=== PATIENT | female | born 1990 | race African-American/Black ===

== ENCOUNTER 2019-07-11 09:50 | Inpatient (IN) ==
[2019-07-11 11:24] LABS: BILIRUBIN URINE NEGATIVE (NEGATIVE); BLOOD URINE 4+ (NEGATIVE); CLARITY VERY CLOUDY (CLEAR); COLOR RED; GLUCOSE URINE NEGATIVE (NEGATIVE); KETONE URINE TRACE mg/dL (NEGATIVE); LEUKOCYTES URINE TRACE (NEGATIVE); NITRITE URINE NEGATIVE (NEGATIVE); PROTEIN URINE 2+(100 mg/dL) mg/dL (NEGATIVE); SP GRAVITY URINE 1.015; UROBILINOGEN URINE NORMAL
[2019-07-11 11:25] LABS: URINE BACTERIA 1+ /HFP; URINE RBC TNTC /HPF (<10); URINE SOURCE CLEAN CATCH
[2019-07-11 11:31] LABS: AGAP 11; ALBUMIN 4.7 g/dL (3.5-5.0); ALKALINE PHOSPHATASE 54 U/L (32-104); BUN 11 mg/dL (8-22); CALCIUM 9.5 mg/dL (8.8-10.2); CHLORIDE 107 mmol/L (98-107); COSMO 281; CREATININE 0.6 mg/dL (0.5-0.9); ESTIMATED GFR > 60; GLUCOSE 101 mg/dL (70-104); GOT 17 U/L (10-30); GPT 11 U/L (10-36); POTASSIUM 3.4 mmol/L (3.5-5.1); SODIUM 141 mmol/L (136-145); TCO2 23 mmol/L (25-35); TOTAL PROTEIN 8.1 g/dL (6.3-8.3)
[2019-07-11 11:44] LABS: INR 0.99; PROTIME 13.6 Seconds (11.0-16.0)
[2019-07-11 11:45] LABS: PTT 27.5 Seconds (22.3-41.8)
[2019-07-11 12:03] LABS: BASO# 0.06 X1000 (0.0-0.2); BASO% 1.4 % (0.0-0.8); EOS# 0.02 X1000 (0.0-0.7); EOS% 0.5 % (0.0-10.0); HEMATOCRIT 24.2 % (37.0-47.0); HEMOGLOBIN 6.6 g/dL (12.0-16.0); LYMPH# 2.08 X1000 (1.2-3.4); LYMPH% 47.5 % (20.5-51.1); MCH 19.4 PG (27-31); MCHC 27.3 g/dL (33-37); MONO# 0.36 X1000 (0.11-0.59); MONO% 8.2 % (1.7-9.3); NEUT# 1.86 X1000 (1.4-6.5); NEUT% 42.4 % (42.2-75.2); PLT 105 X1000 (130-400); RBC 3.41 XMIL (4.2-5.4); RDW 31.5 % (11.5-14.5); WBC 4.38 X1000 (4.8-10.8)
--- NOTE | 2019-07-11 12:08 | Diag Imaging Result Doc PS360 ---
US PELVIC NON-OB COMPLETE - 07/11/2019 INDICATION: vaginal bleeding TECHNIQUE: Transabdominal and endovaginal COMPARISON: None FINDINGS: The uterine endometrium is somewhat enlarged and very heterogeneous in echotexture. The endometrium measures about 1.5 cm maximally. The uterus measures 7.2 x 4.4 x 3.9 cm. There are several simple cysts of each ovary. These measure up to 1.8 cm on the right and 1.3 cm m on the left. There is some free fluid at the left side of the pelvis. There was significant vaginal bleeding during and after the exam. IMPRESSION: 1. Enlarged heterogeneous abnormal endometrium. This may represent retained products of conception from a missed , endometrial polyp, endometrial blood clot or endometritis. 2. Small bilateral ovarian cysts. 3. Trace pelvic free fluid. Electronically signed by Nicholas Galvan 07/11/2019 12:06 PM
[2019-07-11] MEDS ORDERED: NS 1,000 ML IV ONE (12:12)
[2019-07-11] MEDS ORDERED: PREMARIN IV ONE ×2 (12:13→12:15)
[2019-07-11] MEDS ORDERED: NS 500 ML IV ONE ×2 (12:17→14:05)
[2019-07-11 13:35] LABS: ANISOCYTOSIS 2+; EOS 1 % (1-10); LYMPHS 43 % (21-51); MICROCYTOSIS 1+; MONO 5 % (1-9); SEGS 48 % (42-75)
--- NOTE | 2019-07-11 13:49 | PROVIDER DOCUMENTATION ---
This chart was entered by Brandy Tay Scribe, acting as scribe for Isabel Collins MD. HPI-Female /OB/Breast - General Chief Complaint: Female Stated Complaint: FEMALE Time Seen by Provider: 07/11/19 10:13 Source: reports: patient Allergies/Adverse Reactions: Patient Allergies Allergy/AdvReac Type Severity Reaction Status Date / Time ibuprofen AdvReac HIVES Verified 07/11/19 09:57 Home Medications: Home Medication List Medication Instructions Recorded Confirmed Last Taken Type NK [No Home Medications] 07/11/19 07/11/19 Unknown History - History of Present Illness-Female /OB Nature of Presenting Problem: Patient is a 29 year old female who presents with vaginal bleeding. States she started to pass clots this morning. Reports LMP was 2 weeks ago. Denies taking control. History of anemia. Does patient report she is ?: No Location of complaint: reports: vaginal Quality of Pain: reports: none Severity in ED: reports: mild Onset/Duration: reports: this morning Timing: reports: still present Vaginal Symptoms: reports: abnormal bleeding Vaginal Bleeding Amount: Medium/Moderate Urinary Symptoms: reports: no symptoms Associated Symptoms: reports: denies symptoms Similar Symptoms Previously?: No Recently seen or treated by another doctor?: No - LMP/ History LMP: 06/27/19 : 0 Para: 0 : 0 Review of Systems - Adult - REVIEW OF SYSTEMS - ADULT Constitutional: reports: no symptoms reported Eyes: reports: no symptoms reported Ears, Nose, Mouth & Throat: reports: no symptoms reported Cardiovascular: reports: no symptoms reported Respiratory: reports: no symptoms reported Gastrointestinal: reports: no symptoms reported Genitourinary: reports: see HPI, other (vaginal bleeding). denies: dysuria, hematuria Musculoskeletal: reports: no symptoms reported Integumentary: reports: no symptoms reported Neurological: reports: no symptoms reported Psychiatric: reports: no symptoms reported Endocrine: reports: no symptoms reported Hematologic/Lymphatic: reports: no symptoms reported Allergic/Immunologic: reports: no symptoms reported All Other Systems: Reviewed and Negative Past History - Adult - PAST MEDICAL HISTORY-ADULT Review of Records: reports: Old Records Reviewed, Nursing Assessment Review, Medications Reviewed, Social history reviewed & non-contributory. Major Childhood Illnesses: reports: denies history Cardiovascular: reports: denies history Respiratory: reports: denies history Gastrointestinal: reports: denies history Obstetrical/Gynecological: reports: denies history Genitourinary: reports: denies history Musculoskeletal: reports: denies history Neurological: reports: denies history Endocrine/Immune: reports: denies history Other Conditions: reports: denies history - PRIOR SURGERIES/PROCEDURES Surgical/Procedure History: reports: reviewed, not pertinent - IMMUNIZATION STATUS Childhood Immunizations: See Nurse Assessment Flu Vaccine: See Nurse Assessment - FAMILY HISTORY Family History: reviewed, not pertinent - SOCIAL HISTORY Smoking: denies Substance Use: denies Living Situation: family Physical Exam-General - PHYSICAL EXAM-ADULT Initial Vital Signs Reviewed: Yes - CONSTITUTIONAL General Appearance: alert, no apparent distress. negative: lethargic - HEAD, EARS, NOSE, MOUTH & THROAT HENMT: normocephalic/atraumatic, moist mucous membranes. negative: angioedema - RESPIRATORY Respiratory: chest non-tender, lungs clear, normal breath sounds. negative: c rackles, rhonchi - CARDIOVASCULAR Cardiovascular: normal peripheral pulses, regular rate, rhythm. negative: tachycardia - GASTROINTESTINAL (ABDOMEN) Abdominal Exam: normal bowel sounds, non tender, soft. negative: guarding - GENITOURINARY Female Genitalia/Pelvic Exam: deferred - MUSCULOSKELETAL Extremity: normal inspection. negative: deformity, swelling - SKIN Integumentary: normal color, normal turgor, warm/dry. negative: diaphoresis, pallor - NEUROLOGIC Neurologic: grossly normal. negative: aphasia, facial droop - PSYCHIATRIC Psych/Mental Status: normal mood/affect, oriented x 3. negative: anxious Progress - PLAN OF CARE/RESULTS Progress/Plan/Lab Results: Bedside Urine ED: Urine Bedside Start: 07/11/19 09:58 Freq: ORDERED Status: Complete Protocol: Activity Type Activity Date Activity User E-Sign Co-Sign Detail Recorded Client Recorded Date Recorded By Document 07/11/19 10:42 [id number] 07/11/19 10:43 [id number] 07/11/19 10:42 Point of Care [Bedside Point of Care] -Lot # [id number] - Results Negative -Control Line Visible? Yes Result Diagrams: 07/11/19 10:35 07/11/19 10:35 - REASSESSMENT Reassessment #1 Time Reassessed: 13:11 Status: other (Dr. Collins informed the patient that the national opelint analyst OBGYN want the patient to have a pelvic exam. The patient requested a female provider to do the exam.) - ULTRASOUND (By Radiology) 1 US Study: Pelvic Impression: See EMR Report ( US PELVIC NON-OB COMPLETE - 07/11/2019 INDICATION: vaginal bleeding TECHNIQUE: Transabdominal and endovaginal COMPARISON: None FINDINGS: The uterine endometrium is somewhat enlarged and very heterogeneous in echotexture. The endometrium measures about 1.5 cm maximally. The uterus measures 7.2 x 4.4 x 3.9 cm. There are several simple cysts of each ovary. These measure up to 1.8 cm on the right and 1.3 cm m on the left. There is some free fluid at the left side of the pelvis. There was significant vaginal bleeding during and after the exam. IMPRESSION: 1. Enlarged heterogeneous abnormal endometrium. This may represent retained products of conception from a missed , endometrial polyp, endometrial blood clot or endometritis. 2. Small bilateral ovarian cysts. 3. Trace pelvic free fluid. Electronically signed by Nicholas Galvan 07/11/2019 12:06 PM 07/11/19 1206 Interpreting Physician: Nicholas Galvan MD Dictated Date/Time: 07/11/19 1202 cc: Isabel Collins MD; Charles Perdomo MD) - CONSULTS/PCP/HOSPITALIST Notification #1 *Consult/PCP/Hospitalist*: Dr. Flores Time Discussed: 13:04 Reason/Comments: Dr. Collins consulted with Dr. Flores about patient. Consult Disposition: Admit #2 Consult: Dr. Cleveland Time Discussed: 13:07 Reason/Comments: Dr. Collins consulted with Dr. Cleveland about patient. #3 Consult: Dr. Cleveland Time Discussed: 13:25 Reason/Comments: David consulted with Dr. Cleveland about patient. Departure - Departure Date of Disposition Decision: 07/11/19 Time of Disposition Decision: 13:47 DIAGNOSIS: Vaginal bleeding Anemia Qualifiers: Anemia type: iron deficiency Iron deficiency anemia type: chronic blood loss Qualified Code(s): D50.0 - Iron deficiency anemia secondary to blood loss (chronic) Disposition: ADMITTED INPATIENT 09 Certified Medical Emergency: Emergent Condition: Serious - Critical Care Note This patient required my direct & personal management of CC.: No Attestation - Physician/ MIRIAM Attestation Patient care was provided by Advanced Practice Provider:: No The physician spent face to face time with patient:: Yes Advanced Practice Provider documentation review:: Supervising physician onsite and consulted in the evaluation and care of this patient. The physician did have a face to face encounter with the patient. This chart was documented by the indicated scribe, (Brandy Tay Scribe) and accurately reflects the services I performed and decisions made by me, Isabel Collins MD, as attested by the provider's signature.
[2019-07-11] MEDS ORDERED: NS 500 ML ONE (14:04)
[2019-07-11 14:39] LABS: IRON SATURATION 9 %; TIBC 344 ug/dL; TOTAL IRON 32 ug/dL (49-151); UNBOUND IRON 312 ug/dL (112-346)
[2019-07-11] MEDS ORDERED: ZOFRAN IV PRN (17:12)
[2019-07-11] MEDS ORDERED: TYLENOL PO PRN (17:12)
--- NOTE | 2019-07-11 18:04 | HISTORY AND PHYSICAL ---
PRIMARY CARE PHYSICIAN: Charles Perdomo MD CHIEF COMPLAINT: Vaginal bleeding, passing large clots this morning. Last menstrual period 2 weeks ago. HISTORY OF PRESENTING ILLNESS: This is a 29-year-old female, who presents to [facility] ER with complaints of vaginal bleeding. States she began passing large clots of material vaginally this morning. Has a history of iron- deficiency anemia. States her last menstrual period was 2 weeks ago and that she had finished her cycle approximately a week ago so the bleeding this morning was brand new for her with the clots. She states that she is not sexually active. Is a 0, para 0, abortus 0. Her workup showed a hemoglobin of 6.6 with a hematocrit of 24.2. Her urine test was negative. We did do a pelvic ultrasound that showed an impression of an enlarged heterogeneous abnormal endometrium that may represent retained product of conception from a missed , endometrial polyp, endometrial blood clot, or endometritis, small bilateral ovarian cyst and trace pelvic free fluid so she will be admitted to the medical unit at [facility], [place] for QUOTATION CHECKER consultation and further evaluation and treatment. PAST MEDICAL HISTORY: Iron deficiency anemia. PAST SURGICAL HISTORY: None. FAMILY HISTORY: Reviewed and noncontributory. SOCIAL HISTORY: She denies any tobacco, alcohol, or illicit drug use. ALLERGIES: Ibuprofen. HOME MEDICATIONS: She does not list any medications on a routine basis, but she does state that she takes an iron tablet every day for her iron deficiency anemia, so we will verify that with an order for Nursing to update and confirm home medications. DIAGNOSTIC STUDIES: Laboratory data showed a white blood cell count of 4.38, hemoglobin 6.6, hematocrit 24.2, platelets 105. PT 13.6, INR 0.99. Sodium 141, potassium 3.4, chloride 107, CO2 of 23, BUN of 11, creatinine 0.6 glucose 101. TSH of 2.65. Urinalysis showed 4+ blood, negative nitrites, trace white blood cells, 1+ bacteria. Urine test was negative. Pelvic ultrasound showed an impression of an enlarged heterogeneous abnormal endometrium that may represent retained products of conception from a missed , endometrial polyp, endometrial blood clot, or endometritis. Small bilateral ovarian cyst and trace pelvic free fluid. A serum test is pending at this time. REVIEW OF SYSTEMS: She denied any fever, chills, blurred vision. She has had some mild dizziness, weakness, fatigue. Denied any chest pain, coughing, shortness of breath. Denied any abdominal pain, constipation, diarrhea, or burning or hurting with urination. She has noted positive for bright red vaginal bleeding with large clots that began this morning. PHYSICAL EXAMINATION: VITAL SIGNS: On arrival she had a temperature of 98 degrees, pulse 104, respirations 18, blood pressure 124/76, saturating 100% on room air. GENERAL: This is a 29-year-old female, who is lying in the bed and answers questions appropriately. HEMNT: Normocephalic, atraumatic. Normal ENT inspection. Oropharynx and nares are clear. EYES: Pupils are equal, round, and reactive to light and accommodation. Extraocular movements are intact. NECK: Normal inspection. Normal range of motion. LUNGS: Clear to auscultation bilaterally with equal lung expansion and chest wall movement. HEART: With regular rate and rhythm. No murmurs, rubs, or gallops. ABDOMEN: Soft, nontender, nondistended. Bowel sounds are present x4 quadrants. MUSCULOSKELETAL: She had 5/5 strength x4 extremities. NEUROLOGICAL: Cranial nerves 2 through 12 appear grossly intact. ASSESSMENT: 1. Menorrhagia. 2. Symptomatic iron deficiency anemia. OUR PLAN: She will be admitted to the medical unit at [facility] [place]. We will transfuse 2 units of packed red blood cells today. We are checking a serum test. We will consult QUOTATION CHECKER. I am going to do iron studies on this patient, and she received conjugated estrogen 25 mg IV x1 and 1.5 L of normal saline boluses. We will continue her at 75 mL an hour. We will recheck a CBC, BMP in the a.m. Further orders after seen by attending and medical consultant. Dictated by SRUTHI Cristobal for Asad Flores MD cc: SRUTHI Cristobal MD Wayne E. Thomas, MD Pt seen and examined/pt is having active vaginal bleeding, has hx menorrhagia, abdominal exam is benign; pt will need evaluation by sifting operator for abnormal pelvic us findings; and possible d and c/hysteroscopy; we will transfuse to get 2 units prbc and more if necessary based on results otherwise agree with findings/plan as described above. MTDD
[2019-07-11] MEDS ORDERED: ZOFRAN ONE (18:27)
[2019-07-11] MEDS ORDERED: ROBINUL ONE (18:27)
[2019-07-11] MEDS ORDERED: XYLOCAINE-MPF 2% ONE (18:27)
[2019-07-11] MEDS ORDERED: DECADRON ONE (18:27)
[2019-07-11] MEDS ORDERED: DIPRIVAN 1% ONE (18:28)
[2019-07-11] MEDS ORDERED: QUELICIN (DOSE) ONE (18:32)
[2019-07-11] MEDS ORDERED: CYTOTEC ONE (19:10)
[2019-07-11] MEDS ORDERED: PITOCIN ONE (19:11)
[2019-07-11] MEDS ORDERED: FENTANYL ONE (19:15)
[2019-07-11] MEDS ORDERED: SILVER NITRATE APPLICATOR ONE (19:24)
[2019-07-11] MEDS ORDERED: OFIRMEV 1000 MG/ISOTONIC SOLN 1,000 MG/100 ML BOTTLE ONE (19:49)
[2019-07-11] MEDS: OFIRMEV 1000 MG/ISOTONIC SOLN 1,000 MG/100 ML BOTTLE IV SCH (19:55)
[2019-07-11] MEDS: DILAUDID ONE ×4 (20:00→20:28)
[2019-07-11 20:33] LABS: HEMATOCRIT 21.9 % (37.0-47.0); HEMOGLOBIN 6.4 g/dL (12.0-16.0)
--- NOTE | 2019-07-11 20:38 | CONSULTATION ---
DATE OF CONSULTATION: 07/11/2019 CHIEF COMPLAINT: Abnormal uterine bleeding/heavy menstrual bleeding. HISTORY OF PRESENT ILLNESS: Gynecologic team consulted for a 29-year-old G0 who presented to [facility] for symptomatic anemia and heavy menstrual bleeding. The patient reports last menstrual period occurred approximately 2 weeks ago, and describes a history of regular monthly menstrual cycles with heavy menstrual bleeding since menarche. Typically, the patient's cycle lasts about 5 days. Describes heavy menstrual bleeding for all 5 days with use of extra heavy overflow pads 5 times a day. The patient's history is also significant for IV iron transfusions at ages 18 and 23. The patient is currently status post IV estrogen x1 dose, and 2 units of packed red blood stat cells, but still admits to symptomatic anemia, shortness of breath, and dizziness. Reports the bleeding started today with passage of small clots this morning, and progressively got worse with passage of large blood clots. PAST MEDICAL HISTORY: chronic heavy menstrual bleeding. SURGICAL HISTORY: Tonsillectomy. [place] HISTORY: Menarche at age 15. Denies any STD exposure. Heavy menstrual bleeding. OBSTETRICAL HISTORY: G0. MEDICATIONS: Ferrous sulfate. ALLERGIES: Ibuprofen. SOCIAL HISTORY: Denies tobacco, alcohol, or drug use. FAMILY HISTORY: Father with hypertension. Mother with a history of heavy menstrual bleeding, requiring hysterectomy. PHYSICAL EXAMINATION: Vital Signs: Temperature is 98.1 degrees, pulse rate 101, respiration rate 18, blood pressure 122/81, and O2 saturation is 100% on room air. Weight 113 pounds, height 5 feet 1 inch tall, body mass index 21.4 kg/m2. General: No acute distress. Alert, awake, oriented x3. Cardiovascular: Regular rate and rhythm. Positive S1, S2. Respiratory: Clear to auscultation bilaterally. Abdomen: Soft, nontender to palpation. Pelvic: Sterile speculum exam: Passage of large blood clots. Approximately 300 mL of blood clot removed from vaginal vault on exam. With Valsalva, significant bleeding noted from cervical os. Bimanual exam: Mobile 8 cm size uterus. Nontender to palpation. LABORATORY DATA: WBCs 4.38, hemoglobin 6.6, hematocrit 24.2, platelets 105,000. PT 13.6, INR 0.99, PTT 27.5. Creatinine is 0.6. TSH 2.65. Urine test is negative. IMAGING: Ultrasound: Uterus measures 7.2 x 4.4 x 3.9 cm. Uterine endometrium very heterogeneous in echotexture, measuring 1.5 cm in thickness. Bilateral ovaries with simple cysts. Trace pelvic free fluid. ASSESSMENT: Ms. Sosa is a 29-year-old, 0, who presents with dysfunctional uterine bleeding complicated by symptomatic anemia. PLAN: 1. Recommend surgical procedure via dilation and curettage to help reduce vaginal bleeding and thin endometrial lining. 2. The patient counseled on the risks, benefits, and alternatives to procedure, risks not limited to infection, bleeding, injury to surrounding organs, including uterine perforation, injury to bowel, bladder, or ureters, and cervix. 3. We will recheck CBC post procedure to assess for need of additional packed red blood cells. [facility] HOSPITALFranklin
[2019-07-11] MEDS: NS 1,000 ML IV SCH (21:02)
--- NOTE | 2019-07-11 21:12 | OPERATIVE NOTE ---
PROCEDURE DATE: 07/11/2019 PREOPERATIVE DIAGNOSIS: Dysfunctional uterine bleeding. POSTOPERATIVE DIAGNOSIS: Dysfunctional uterine bleeding with possible uterine polyps. PROCEDURE PERFORMED: Dilation and curettage. SURGEON: Char Cleveland DO CRM DYNAMICS DEVELOPER: None. ANESTHESIA: General endotracheal anesthesia. FINDINGS: A 7 cm sized uterus with endometrial polyps. COMPLICATIONS: None. ESTIMATED BLOOD LOSS: 200 mL. SPECIMENS REMOVED: Endometrial curettings. SURGICAL RISKS: The patient was informed of the risks and benefits of the procedure. Risks included, but were not limited to, bleeding, infection, injury to surrounding organs, and uterine perforation. The patient expressed understanding of the risk involved. All questions were answered and the patient consented to the procedure. DESCRIPTION OF THE PROCEDURE: The patient was taken to the operating room where a time-out was performed to confirm correct patient and correct procedure. The patient was given IV sedation. Anesthesia was established. The patient was then positioned on the operating table in a dorsal lithotomy position with the legs supported using candy-cane stirrups. The patient was then prepped and draped in the usual sterile fashion. A bimanual exam was performed and uterus was found to be approximately 7 cm in size, mid position and slightly dilated at the cervix. A weighted speculum was inserted into the vagina and the cervix was visualized and grasped using single-tooth tenaculum and gentle traction was applied to the single-tooth tenaculum. The uterus was sounded to approximately 7 cm. A curette was used and passed successfully through the cervix to the uterus without cervical dilation. The curette was advanced to the fundus and the uterine cavity was curetted in a systematic manner with care taken to cover all surfaces. Endometrial curettings were placed on the Telfa and sent to Pathology. The curette was then withdrawn and the single-tooth tenaculum was removed from the anterior lip of the cervix. Adequate hemostasis was noted, but to increase hemostasis 800 mcg of Cytotec was placed per rectum to support good hemostasis. The weighted speculum was removed from the vagina. At completion of the procedure, all needle, sponge, and instrument counts were noted to be correct x2. The patient tolerated the procedure well and was transferred to the recovery room in stable condition.
[2019-07-11 22:43] LABS: FERRITIN 2 ng/mL (13-150)
[2019-07-12] MEDS: OFIRMEV 1000 MG/ISOTONIC SOLN 1,000 MG/100 ML BOTTLE IV SCH ×2 (03:25→09:34)
--- NOTE | 2019-07-12 07:54 | EKG Report ---
Test Performed on : 07/11/2019 12:13:22 PM Test Reason : ER Blood Pressure : / mmHG Vent. Rate : 083 BPM Atrial Rate : 083 BPM P-R Int : 178 ms QRS Dur : 086 ms QT Int : 362 ms P-R-T Axes : 052 017 011 degrees QTc Int : 425 ms Normal sinus rhythm. Minimal voltage criteria for LVH, may be normal variant Cannot rule out Anterior infarct , age undetermined Abnormal ECG No previous ECGs available Unconfirmed Result
--- NOTE | 2019-07-12 09:20 | PROVIDER PROGRESS NOTE ---
- Subjective Pt seen and examined. Currently w/o complaints. Reports bleeding has reduced significantly s/p D&C and dizziness resolved s/p 4 units of pRBCs. Pt ambulating and urinating without difficulty. Denies abdominal pain/fever/chills/n/v. Physical Exam Objective Vital Signs - 8 hr 07/12/19 01:22 07/12/19 03:23 07/12/19 03:31 Temperature 97.7 F 98.1 F 98.1 F Pulse Rate 79 69 67 Respiratory Rate 13 12 12 Blood Pressure 108/68 108/75 118/63 O2 Sat by Pulse Oximetry 100 100 100 07/12/19 03:57 07/12/19 04:12 07/12/19 05:47 Temperature 98.1 F 98.0 F 97.4 F L Pulse Rate 58 L 65 57 L Respiratory Rate 11 L 13 11 L Blood Pressure 118/69 102/68 103/72 O2 Sat by Pulse Oximetry 100 100 100 07/12/19 08:00 Temperature 97.9 F Pulse Rate 73 Respiratory Rate 14 Blood Pressure 122/66 O2 Sat by Pulse Oximetry 100 - Constitutional General Appearance: appears well, alert, no apparent distress - RESPIRATORY Respiratory: lungs clear, normal breath sounds - CARDIOVASCULAR Cardiovascular: regular rate, rhythm - GASTROINTESTINAL (ABDOMEN) Abdominal Exam: non tender, soft - GENITOURINARY Female Genitalia/Pelvic Exam: external exam normal, other (minimal blood/spotting noted on peripad) - MUSCULOSKELETAL Extremity: no calf tenderness - PSYCHIATRIC Psych/Mental Status: normal mood/affect, oriented x 3 Active Medications Generic Name Dose Route Start Last Admin Trade Name Freq PRN Reason Stop Dose Admin Sodium Chloride 1,000 mls @ 75 mls/hr 07/11/19 17:12 07/11/19 21:02 Ns IV 75 mls/hr .[id number] ALEXANDER Administration Acetaminophen 1,000 mg in 100 mls @ 400 mls/hr 07/11/19 19:45 07/12/19 03:25 Ofirmev 1000 Mg/Isotonic Soln IV 07/12/19 20:00 400 mls/hr Q6H ALEXANDER Administration Ondansetron HCl 4 mg 07/11/19 17:12 Zofran IV Q4H PRN PRN Nausea And Vomiting Bedside Urine ED: Urine Bedside Start: 07/11/19 09:58 Freq: ORDERED Status: Complete Protocol: Activity Type Activity Date Activity User E-Sign Co-Sign Detail Recorded Client Recorded Date Recorded By Document 07/11/19 10:42 [id number] 07/11/19 10:43 [id number] Edit Status 07/11/19 17:13 [id number] Active=>Complete [id number] 07/11/19 17:13 [id number] 07/11/19 10:42 Point of Care [Bedside Point of Care] -Lot # [id number] - Results Negative -Control Line Visible? Yes Laboratory Results - last 24 hr 07/11/19 07/11/19 07/11/19 10:35 10:35 10:35 WBC 4.38 L RBC 3.41 L Hgb 6.6 L Hct 24.2 L MCV 71.0 L MCH 19.4 L MCHC 27.3 L RDW Std Deviation 31.5 H Plt Count 105 L MPV Not Reportable Immature Gran % (Auto) 0.0 Neut % (Auto) 42.4 Lymph % (Auto) 47.5 Chaves % (Auto) 8.2 Eos % (Auto) 0.5 Baso % (Auto) 1.4 H Immature Gran # (Auto) 0.00 Neut # (Auto) 1.86 Lymph # (Auto) 2.08 Chaves # (Auto) 0.36 Eos # (Auto) 0.02 Baso # (Auto) 0.06 Segmented Neutrophils 48 Lymphocytes 43 Monocytes 5 Eosinophils 1 Anisocytosis 2+ Microcytosis 1+ PT 13.6 INR 0.99 PTT (Actin FS) 27.5 Sodium 141 Potassium 3.4 L Chloride 107 Carbon Dioxide 23 L Anion Gap 11 BUN 11 Creatinine 0.6 Estimated GFR/1.73 m2 > 60 BUN/Creatinine Ratio 18 Glucose 101 Calculated Osmolality 281 Calcium 9.5 Iron TIBC % Saturation Unsat Iron Binding Ferritin Total Bilirubin 0.40 AST 17 ALT 11 Alkaline Phosphatase 54 Total Protein 8.1 Albumin 4.7 Globulin 3.0 Albumin/Globulin Ratio 1.0 Vitamin B12 Folate TSH Urine Source Urine Color Urine Clarity Urine pH Ur Specific [place] Urine Protein Urine Ketones Urine Blood Urine Nitrite Urine Bilirubin Urine Urobilinogen Urine Microscopic RBC Urine WBC Urine Microscopic WBC Urine Bacteria Urine Glucose Urine Test Blood Type Blood Type Confirm Antibody Screen Crossmatch 07/11/19 07/11/19 07/11/19 10:35 10:35 10:35 WBC RBC Hgb Hct MCV MCH MCHC RDW Std Deviation Plt Count MPV Immature Gran % (Auto) Neut % (Auto) Lymph % (Auto) Chaves % (Auto) Eos % (Auto) Baso % (Auto) Immature Gran # (Auto) Neut # (Auto) Lymph # (Auto) Chaves # (Auto) Eos # (Auto) Baso # (Auto) Segmented Neutrophils Lymphocytes Monocytes Eosinophils Anisocytosis Microcytosis PT INR PTT (Actin FS) Sodium Potassium Chloride Carbon Dioxide Anion Gap BUN Creatinine Estimated GFR/1.73 m2 BUN/Creatinine Ratio Glucose Calculated Osmolality Calcium Iron 32 L TIBC 344 % Saturation 9 Unsat Iron Binding 312 Ferritin Total Bilirubin AST ALT Alkaline Phosphatase Total Protein Albumin Globulin Albumin/Globulin Ratio Vitamin B12 Folate TSH 2.65 Urine Source Urine Color Urine Clarity Urine pH Ur Specific [place] Urine Protein Urine Ketones Urine Blood Urine Nitrite Urine Bilirubin Urine Urobilinogen Urine Microscopic RBC Urine WBC Urine Microscopic WBC Urine Bacteria Urine Glucose Urine Test Blood Type Blood Type Confirm O POSITIVE Antibody Screen Crossmatch 07/11/19 07/11/19 07/11/19 10:35 10:35 10:36 WBC RBC Hgb Hct MCV MCH MCHC RDW Std Deviation Plt Count MPV Immature Gran % (Auto) Neut % (Auto) Lymph % (Auto) Chaves % (Auto) Eos % (Auto) Baso % (Auto) Immature Gran # (Auto) Neut # (Auto) Lymph # (Auto) Chaves # (Auto) Eos # (Auto) Baso # (Auto) Segmented Neutrophils Lymphocytes Monocytes Eosinophils Anisocytosis Microcytosis PT INR PTT (Actin FS) Sodium Potassium Chloride Carbon Dioxide Anion Gap BUN Creatinine Estimated GFR/1.73 m2 BUN/Creatinine Ratio Glucose Calculated Osmolality Calcium Iron TIBC % Saturation Unsat Iron Binding Ferritin 2 L Total Bilirubin AST ALT Alkaline Phosphatase Total Protein Albumin Globulin Albumin/Globulin Ratio Vitamin B12 > 2000 H Folate > 40.0 H TSH Urine Source CLEAN CATCH Urine Color RED Urine Clarity VERY CLOUDY A Urine pH 7.0 Ur Specific [place] 1.015 Urine Protein 2+(100 mg/dL) A Urine Ketones TRACE Urine Blood 4+ Urine Nitrite NEGATIVE Urine Bilirubin NEGATIVE Urine Urobilinogen NORMAL Urine Microscopic RBC TNTC A Urine WBC TRACE A Urine Microscopic WBC 10-20 A Urine Bacteria 1+ Urine Glucose NEGATIVE Urine Test Blood Type Blood Type Confirm Antibody Screen Crossmatch 07/11/19 07/11/19 07/11/19 10:36 12:30 18:27 WBC RBC Hgb Hct MCV MCH MCHC RDW Std Deviation Plt Count MPV Immature Gran % (Auto) Neut % (Auto) Lymph % (Auto) Chaves % (Auto) Eos % (Auto) Baso % (Auto) Immature Gran # (Auto) Neut # (Auto) Lymph # (Auto) Chaves # (Auto) Eos # (Auto) Baso # (Auto) Segmented Neutrophils Lymphocytes Monocytes Eosinophils Anisocytosis Microcytosis PT INR PTT (Actin FS) Sodium Potassium Chloride Carbon Dioxide Anion Gap BUN Creatinine Estimated GFR/1.73 m2 BUN/Creatinine Ratio Glucose Calculated Osmolality Calcium Iron TIBC % Saturation Unsat Iron Binding Ferritin Total Bilirubin AST ALT Alkaline Phosphatase Total Protein Albumin Globulin Albumin/Globulin Ratio Vitamin B12 Folate TSH Urine Source Urine Color Urine Clarity Urine pH Ur Specific [place] Urine Protein Urine Ketones Urine Blood Urine Nitrite Urine Bilirubin Urine Urobilinogen Urine Microscopic RBC Urine WBC Urine Microscopic WBC Urine Bacteria Urine Glucose Urine Test NEGATIVE Blood Type O POSITIVE O POSITIVE Blood Type Confirm Antibody Screen NEGATIVE NEGATIVE Crossmatch See Detail See Detail 07/11/19 20:20 WBC RBC Hgb 6.4 L Hct 21.9 L MCV MCH MCHC RDW Std Deviation Plt Count MPV Immature Gran % (Auto) Neut % (Auto) Lymph % (Auto) Chaves % (Auto) Eos % (Auto) Baso % (Auto) Immature Gran # (Auto) Neut # (Auto) Lymph # (Auto) [place] # (Auto) Eos # (Auto) Baso # (Auto) Segmented Neutrophils Lymphocytes Monocytes Eosinophils Anisocytosis Microcytosis PT INR PTT (Actin FS) Sodium Potassium Chloride Carbon Dioxide Anion Gap BUN Creatinine Estimated GFR/1.73 m2 BUN/Creatinine Ratio Glucose Calculated Osmolality Calcium Iron TIBC % Saturation Unsat Iron Binding Ferritin Total Bilirubin AST ALT Alkaline Phosphatase Total Protein Albumin Globulin Albumin/Globulin Ratio Vitamin B12 Folate TSH Urine Source Urine Color Urine Clarity Urine pH Ur Specific [place] Urine Protein Urine Ketones Urine Blood Urine Nitrite Urine Bilirubin Urine Urobilinogen Urine Microscopic RBC Urine WBC Urine Microscopic WBC Urine Bacteria Urine Glucose Urine Test Blood Type Blood Type Confirm Antibody Screen Crossmatch - Assessment & Plan (1) Status post dilation and curettage Status: Acute (2) Anemia Status: Acute (3) Vaginal bleeding Status: Acute - Progress Note Disposition: 29 yo G0 POD#1 s/p D&C for AUB/HMB - polyps complicated by symptomatic anemia -HD stable -check CBC 4 hours after last pRBCs -Recommend continuing Ferrous sulfate BID -Discussed D&C and likely diagnosis of polyps -Recommend starting contraceptive method to prevent thickening of endometrial lining. Pt advised to f/u in my office in one week to discuss options -Advance to reg diet -OOB to ambulation -pending CBC, if Hgb greater than 7, recommend d/c home with out pt f/u in 1 week
[2019-07-12] MEDS: NS 1,000 ML IV SCH (10:42)
[2019-07-12 10:51] LABS: BASO# 0.02 X1000 (0.0-0.2); BASO% 0.3 % (0.0-0.8); HEMATOCRIT 37.8 % (37.0-47.0); HEMOGLOBIN 12.5 g/dL (12.0-16.0); IMM GRAN# 0.02 X1000 (0.0-0.04); IMM GRAN% 0.3 % (0.0-0.5); LYMPH# 1.15 X1000 (1.2-3.4); LYMPH% 16.6 % (20.5-51.1); MCH 26.2 PG (27-31); MCHC 33.1 g/dL (33-37); MCV 79.2 FL (81-99); MONO# 0.91 X1000 (0.11-0.59); MONO% 13.2 % (1.7-9.3); NEUT# 4.81 X1000 (1.4-6.5); NEUT% 69.6 % (42.2-75.2); PLT 64 X1000 (130-400); RBC 4.77 XMIL (4.2-5.4); RDW 21.4 % (11.5-14.5); WBC 6.91 X1000 (4.8-10.8)
[2019-07-12 11:17] VITALS: BP 119/73
[2019-07-12 11:36] LABS: AGAP 8; BUN 6 mg/dL (8-22); CALCIUM 8.8 mg/dL (8.8-10.2); CHLORIDE 105 mmol/L (98-107); COSMO 273; CREATININE 0.6 mg/dL (0.5-0.9); ESTIMATED GFR > 60; GLUCOSE 100 mg/dL (70-104); POTASSIUM 3.4 mmol/L (3.5-5.1); SODIUM 138 mmol/L (136-145); TCO2 25 mmol/L (25-35)
--- NOTE | 2019-07-13 12:56 | DISCHARGE SUMMARY ---
ADMISSION DATE: 07/11/2019 DISCHARGE DATE: 07/12/2019 DISPOSITION: Home. FOLLOWUP: 1. Dr. Charles Perdomo. 2. Dr. Cleveland. CONSULTATIONS DURING THIS ADMISSION: CORPORATE COMPLIANCE OFFICER was consulted. The patient was seen by Dr. Cleveland. INVASIVE PROCEDURES DONE DURING THIS ADMISSION: A dilation and uterine curettage was done by Dr. Cleveland on 07/11/2019. IMAGING STUDIES OF SIGNIFICANCE: Ultrasound of the pelvis did show enlarged heterogeneous abnormal endometrium, small bilateral ovarian cysts, trace pelvic fluid. ADMISSION DIAGNOSES: 1. Menorrhagia. 2. Symptomatic iron deficiency. DISCHARGE DIAGNOSES: 1. Symptomatic anemia secondary to dysfunctional uterine bleed. 2. Menorrhagia. 3. Severe iron deficiency with anemia secondary to chronic genitourinary bleed. 4. Suspected uterine polyps. DISCHARGE MEDICATIONS: 1. Iron sulfate 325 b.i.d. 2. Lola-Colace 1 tablet b.i.d. 3. control pills to be decided by Dr. Cleveland. PRESENTING COMPLAINT: Vaginal bleed. HISTORY OF PRESENTING COMPLAINT: Ms. Sosa is a 39-year-old female with history of menorrhagia for the past over 10 years, who came to the emergency department because of severe vaginal bleed associated with weakness and fatigue. Upon presenting to [place], she was found to have a hemoglobin level of 6.6. She was transferred from [facility] to [facility] for CORPORATE COMPLIANCE OFFICER evaluation. HOSPITAL COURSE: Ms. Sosa was admitted to [facility], was group and crossmatch for 4 units of PRBCs. She was evaluated by Dr. Cleveland, and a decision was made for dilation and curettage of the uterus. This was successfully done. Postoperatively, Ms. Sosa refers to be doing well. Bleeding had stopped. Her test was negative, and urine culture was also negative. This morning, she refers to be doing a whole lot better. Her vitals are stable, blood pressure is 119/73, pulse of 77, respirations 13, temperature is 98 degrees. Her repeat hemoglobin after the 4 units of PRBC is up to 12.5. We think she is stable for discharge today. She will follow up with Dr. Cleveland, who will decide at a later date which control pill the patient will be on. All the discharge instructions have been discussed with Ms. Sosa, and she voiced understanding. TIME SPENT: Time spent for discharge was 32 minutes. cc: Mario Arana MD
== END 2019-07-12 12:24 | disposition home or self-care (01) | DRG 745 ==
LOC: P.ED 09:50 → 4N 09:51 → SUATTDRO 09:51 → 2N 15:25
PROVIDERS: ATTEND Internal Medicine